=== PATIENT | female | born 1980 | race Caucasian/White ===

== ENCOUNTER → 2021-01-25 | Outpatient (CLI) | payer MEDICAID ==
[~2021-01-25] MED LIST: LIDOCAINE 2% Multi-Dose 20 ML VIAL. IJ ONE
--- NOTE | 2021-01-25 17:10 | RAD ---
CLINICAL INDICATION: Reason: LT BREAST MASS PRE-PROCEDURAL CONSULTATION: Details of the procedure and possible limitations and complications were discussed with the patient. After addressing her questions and concerns, written informed consent wa s obtained. A time out was then taken to verify patient's name and date of as well as site and laterality. PROCEDURE: The mass at the 6 o'clock position within the left breast was targeted under ultrasound. The skin of the left breast was cleansed and prepped in the typical sterile fashion. 7 cc of 1% lidoc racquel was used for local anesthesia. A small skin incision was then made to permit passage of a 14 gau GFS IT activated biopsy device. 5 core specimens were obtained. Patient declined placement of breast clip. Hemostasis was achieved. The patient tolerated the procedure well with no immediate complications. IMPRESSION: Successful ultrasound guided core needle biopsy of a mass at the 6 o'clock position withi n the left breast. Pathology is pending. Electronically signed by: Kenji Blank MD (01/25/2021 5:08 PM) [id number]
--- NOTE | 2021-01-26 12:07 | PATHOLOGY ---
[facility] Accession Number: [id number] . 01 Material submitted: . breast - LEFT BREAST MASS; 6 O'CLOCK 3CMFN 1.8 CM. Modifiers: left . 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 - Apocrine metaplasia, focal. (JPM:polisher implant; 01/26/2021) MBR 01/26/2021 1028 Local . 02 Comment: There is no evidence of malignancy. (JPM:polisher implant; 01/26/2021) . 02 Electronically signed: . Bobby Layne MD, Pathologist NPI- [id number] . 01 Gross description: . The specimen is received in formalin, labeled "Zuri Tyler, left breast 6:00, 3 cm FN". Received are 4 needle cores of fibrofatty tissue measuring 1.3 x 0.8 x 0.2 cm in aggregate dimensions. The specimen is submitted entirely in cassettes A1-A3. The specimen is collected at 1327 and placed into formalin at 1328 on 01/25/2021. The specimen is removed from formalin at 2230 on 01/25/2021. The total formalin fixation time is 8 hours and 58 minutes. ([facility]; 01/25/2021) NRI/NRI 01/25/2021 2120 Local . 02 Pathologist provided ICD-10: N60.32, N60.82, N61.0, N60.12 . 02 CPT . 907769 Specimen Comment: A courtesy copy of this report has been sent to [phone], [phone] Specimen Comment: [id number] Specimen Comment: Report sent to / DR REID Performed at: 01 [facility] [address] [facility] [address], [place] [id number] MD Juan Carlos Ng MD Phone: [phone] Performed at: 02 [facility] [address] [place], [place] [id number] MD Bobby Layne MD Phone: [phone]
== END | disposition home or self-care (01) ==
LOC: US 12:37
PROVIDERS: ATTEND Physician Assistant
DX: N63.23 Unspecified lump in the left breast, lower outer quadrant (principal); N60.32 Fibrosclerosis of left breast; N60.82 Other benign mammary dysplasias of left breast
CPT/HCPCS: 19083; 88305; C1819